=== PATIENT | male | born 1995 | race African-American/Black ===

== ENCOUNTER 2016-10-26 02:37 | Emergency (ER) | payer BC ==
[2016-10-26] MEDS ORDERED: 0.9 % SODIUM CHLORIDE 500 ML IV ONE ×2 (03:10→04:44)
[2016-10-26] MEDS ORDERED: 0.9 % SODIUM CHLORIDE 1,000 ML IV ONE ×2 (03:45→04:44)
[2016-10-26 04:10] LABS: eGFR (African) > 60; eGFR (Non-African) > 60
[2016-10-26 04:20] LABS: BASOPHILS % 0.3 (0.0-1.5); EOSINOPHILS % 0.6 % (0.0-6.8); MEAN CORPUSCULAR HEMOGLOBIN 62.8 pg (28.0-34.0); MEAN CORPUSCULAR VOLUME 98.8 fl (80.0-100.0); MONOCYTES % 4.3 % (0.0-11.0); NEUTROPHILS # 4.6 # k/uL (1.4-7.7)
[2016-10-26 05:16] LABS: OCCULT BLOOD,URINE NEGATIVE (NEGATIVE); UROBILINOGEN URINE 0.2 Eu (0.2-1.0)
--- NOTE | 2016-10-26 07:23 | ED Physician Documentation ---
General Adult - HISTORIAN Historian: patient, parent - HPI Stated Complaint: od Chief Complaint: General Adult Additional Information: pATIENT TO ED W/MOM AFTER TOOK UNDETERMINED NU MBER MEDS AND AMOUNT FROM HIS MEDS AND MOMS MEDS IN ORDER TO GET TO SLEEP APPROX 0200 HRS. HE HAD RETURNED FROM THE GYM AND HAD STUDIED SOME OF HIS COLLEGE LESSONS-STARTED UP STAIRS TO BED GOT WEAK CALLED MOM TO HELP. SHE BROUGHT HIM TO THE ED. HE HAD NO INTENTION OF SELF HARM "JUST WANTED TO GET TO SLEEP". HE IS UNSURE WHICH AND HOW MANY TABS HE TOOK. THE LIST INCLUDES ADDERAL 20 MG PROPANOLOL 10MG, PERHAPS TYLENOL FROM HIS BACK-PACK, OTC BENADRYL, TRAMADOL 50 MG, KLONIPIN 1MG. WE CALLED POISON CONTROL FOR ASSIST HOWEVER WE WILL JUST HAVE TO KOBSERVE. HE APPEARS SLIGHTLY CONFUSED BUT NOT IN APPARENT SIGNIFICT DISTRESS. HE IS COOPERATIVE AND MOM IS OF SIG HELP Onset: hours (0200) Timing: still present, other (HE AAPPEARS TO BE IMPROVING AT [id number] REMAINS STABLE) Severity: mild, moderate - ROS CONST: no problems EYES/ENT: denies: problems with vision CVS/RESP: none. denies: chest pain, shortness of breath GI/: none, nausea. denies: vomiting MS/SKIN/LYMPH: leg pain ( AND INT CRAMPS) NEURO/PSYCH: difficulty with speech ( SLIGHTLY SLURRED NOT SURE OF SELF ACCD TO MOM). denies: headache, fainting, difficulty walking - PAST HX Past History: none (SOME SPORTS RELATED INJURIES BUT NONE CHRONIC-WORKSS OUT DAILY AT THE GYM FOR APPROX 1 1/2 HRS DAILY) Other History: none Surgeries/Procedures: other (SHOULDER) Allergies/Adverse Reactions: Allergies Allergy/AdvReac Type Severity Reaction Status Date / Time amoxicillin Allergy Intermediate Rash Verified 10/26/16 03:45 Home Medications: Ambulatory Orders Medication Instructions Recorded Dextroamphetamine/Amphetamine 20 mg PO D 02/23/16 [Adderall Xr 20 mg Capsule] Propranolol HCl [Inderal] 10 mg PO D 10/26/16 - SOCIAL HX Smoking History: non-smoker Alcohol Use: occasionally Drug Use: none - FAMILY HX Family History: Yes (MOM HAS HTN GRANDFATHERS ALCOHOLICS PLUS DIABETES IN FAMILY ) - VITAL SIGNS Vital Signs: Vital Signs Temp Pulse Resp BP Pulse Ox 98.8 F 81 16 138/103 99 10/26/16 02:38 10/26/16 02:38 10/26/16 02:38 10/26/16 02:38 10/26/16 02:38 ED Results Lab/Radiology - Orders Orders: ED Orders Category Date Time Status Place IV Lock 1T Care 10/26/16 04:04 Ordered ACETAMINOPHEN LEVEL Routine Lab 10/26/16 03:52 Received CBC/PLATELET/DIFF Routine Lab 10/26/16 03:52 Received CMP Routine Lab 10/26/16 03:52 Received UA [URINALYSIS] Routine Lab 10/26/16 Ordered UDS [DRUG SCREEN URINE MEDICAL ONLY] Routine Lab 10/26/16 Ordered 0.9 % Sodium Chloride [Normal Saline] 1,000 ml Med 10/26/16 03:45 Discontinued IV .STK-MED General Adult Physical Exam - PHYSICAL EXAM GENERAL APPEARANCE: mild distress EENT: eye inspection normal NECK: normal inspection RESPIRATORY: no resp distress, breath sounds normal CVS: reg rate & rhythm, heart sounds normal ABDOMEN: soft, non-tender BACK: normal inspection SKIN: warm/dry, normal color. No: cyanosis, diaphoresis EXTREMITIES: non-tender, normal range of motion, no evidence of injury NEURO: oriented X3 (speech slightly slurred some answers not totally coherent) Discharge Clincal Impression: meds over dpse, meds ovedose Referrals: Aster Agarwal, PRN [Primary Care Provider] - 2 Days Home Medications: Ambulatory Orders Dextroamphetamine/Amphetamine [Adderall Xr 20 mg Capsule] 20 mg PO D 02/23/16 Propranolol HCl [Inderal] 10 mg PO D 10/26/16 Comments: pt was not self harming-is much better this am-mom agrees. home rest f/u w/pcp prn Condition: Good Disposition: 01 HOME, SELF-CARE Decision to Admit: NO Decision Time: 07:20
[2016-10-26 07:49] VITALS: BP 145/92
== END 2016-10-26 07:30 | disposition home or self-care (01) ==
LOC: ED 02:37
DX: T50.901A Poisoning by unspecified drugs, medicaments and biological substances, accidental (unintentional), initial encounter (principal); X58.XXXA Exposure to other specified factors, initial encounter; Y93.9 Activity, unspecified; Y99.9 Unspecified external cause status
CPT/HCPCS: 80053; 80304; 81002; 85025; 93005; J7030; J7060; 96360; 99283; G0477

== ENCOUNTER 2018-08-14 12:56 | Outpatient (CLI) | payer BC ==
--- NOTE | 2018-08-14 14:06 | Diagnostic Imaging Report ---
BRENNAN TURNER [facility] [id number] [facility] [address] [place], [place]. [address] Report Submission Date: Aug 14, 2018 1:49:31 PM CDT Patient Study Name: KIANNA PEREZ Date: Aug 14, 2018 1:20:33 PM CDT Modality Type: CT Gender: M Description: CT ABD PELVIS W/ CON : 89 Institution: [facility] Physician: BRENNAN TURNER Examination: CT Abdomen/pelvis History: LLQ PAIN AND BULGING. LETHARGY. LOSS OF APPETITE. BODY ACHES X 5 MONTHS Comparison exams: None available Technique: CT Abdomen/pelvis with IV protocol. Findings: Liver, spleen, adrenals, pancreas, kidneys and gallbladder are without gross irregularity. No gallstone. No suspicious renal calcifications. Ureters are nondilated in their course through the abdomen and pelvis. No central calcifications. Bladder margin within normal limits. Abdominal aorta without aneurysm or peripheral atherosclerotic disease. Cardiac silhouette is not enlarged. No pericardial effusion. Bowel unopacified limiting evaluation. No abnormal dilation. Stool within the large bowel limiting sensitivity. No mesenteric inflammatory changes or free fluid. Appendix is visualized and is without inflammatory changes. Osseous structures appropriate for age. Lung bases without infiltrate. No effusion. Impression: No acute upper abdominal organ inflammatory process. No abnormal bowel dilation or inflammation. Moderate large bowel stool. No gallstone. No suspicious renal calcifications or abnormal ureteric dilation. No lung base consolidation or effusion. Electronically signed on Aug 14, 2018 1:49:31 PM CDT by: Migue PHILLIPS
== END 2018-08-14 13:05 ==
LOC: RAD 12:56
PROVIDERS: ATTEND Family Medicine
DX: R10.32 Left lower quadrant pain (principal); R19.4 Change in bowel habit
CPT/HCPCS: 74177; Q9967